=== PATIENT | male | born 1965 | race Caucasian/White ===

== ENCOUNTER 2024-12-01 12:51 | Outpatient (AMB) | payer OTHER, SELFPAY ==
--- NOTE | 2024-12-01 12:51 | MHC.OFFVIS ---
Intake Visit Reasons: Erectile dysfunction Intake Note: New Patient is present for erectile dysfunction labs done 08/29/2023 testosterone : 311 Urology Rx: cialis Blood Thinners: none Imaging completed: none Steam Turbine Operator Required: No Accompanied by: Self / Same As Patient Allergies No Known Allergies (No Known Allergies*) Allergy (Verified 12/01/24 12:55) HPI Comments Details: Jt is a pleasant Urdu-speaking male. He is a patient of Dr. Marquez. He is seen for the following urologic conditions - erectile dysfunction - hypogonadism Urdu translation provided by qualified medical office specialist Re Trial daily 10 mg tadalafil Repeat lab work 2 month Erectile dysfunction Progressive over past 12 month IIEF SCore 11/27 5 Prior occasional tadalafil Takes escitalopram Retrial 10 mg daily tadalafil Hypogonadism 08/28 300 Review of Systems Const Denies chills and Denies fever(s) Card Reports no additional complaints and Denies syncope Resp Denies cough GI Denies abdominal pain and Denies heartburn Reports as per HPI and Denies change in libido Neuro Denies syncope Psych Denies change in libido Endo Denies change in libido Physical Exam Const General: cooperative, healthy appearing, comfortable and no acute distress Orientation/consciousness: patient oriented x3 HEENT Face and sinus: Yes normal facial exam Mouth: moist mucous membranes Neck Neck: Yes normal visual inspection, Yes full ROM and Yes trachea midline Chest Chest palpation & inspection: normal inspection of the chest Resp Effort & Inspection: normal respiratory effort, able to speak in complete sentences and no respiratory distress GI Inspection: Yes normal to inspection Back/Spine/Pelvis Cervical Spine: normal cervical lordosis Thoracic/Lumbar Spine: thoracic and lumbar spine normal to inspection Skin General skin exam: no rashes or lesions noted Neuro General: patient oriented x3, gait normal, tone normal and moves all extremities Extrem General: Yes normal to inspection and Yes capillary refill normal Assessment & Plan Assessment & Plan (1) Hypogonadism in male: Code(s): E29.1 - Testicular hypofunction Category: Medical (2) Erectile dysfunction due to arterial insufficiency: Code(s): N52.01 - Erectile dysfunction due to arterial insufficiency Category: Medical Plan Three-month follow-up lab work Orders: Orders Lutenizing Hormone 2 Months E29.1 - Testicular hypofunction Testosterone, Free/Total 2 Months E29.1 - Testicular hypofunction Medications: New tadalafil 10 mg PO DAILY 90 tabs 0RF sexual activity 90 days E29.1 - Testicular hypofunction, N52.01 - Erectile dysfunction due to arterial insufficiency, N52.9 - Male erectile dysfunction, unspecified Patient Instructions: This note is constructed using voice recognition software. While every effort has been made to ensure accuracy cryolite recovery operator errors may have been included. Imaging studies, laboratory and physical exam results were discussed and reviewed in detail. No major barriers to patient understanding were identified. An opportunity to ask questions regarding the treatment plan was provided. All questions were answered. The patient expressed understanding and agreement with the above treatment plan. The patient is aware they should contact our office by phone for worsening of their current condition or the appearance of new urologic symptoms. Compliance is encouraged with any medications and followup testing that is ordered. It is a privilege to participate in the urologic care of your patient. If you have any questions or concerns regarding treatment for the above conditions, or other urologic issues, please do not hesitate to contact me. The office telephone contact is [phone]. Sincerely, Dr Gio Mccall MD, [facility] - Urology Compassionate Specialist Care for the Genitourinary System Coding Level of Care Code New Pt Level 4 (32539) Diagnoses Hypogonadism in male E29.1 Erectile dysfunction due to arterial insufficiency N52.01
--- OUTSIDE RECORDS SUMMARY | 2024-12-01 13:38 | XMS_ITS | Encounter Summary ---
Author Organization [facility], Address [address] [place] [address] Phone Care Team Providers Care Belt Notcher Name Role Phone DaniaLeslee Primary Care Provider Encounter Details Date Type Department Care Team (Late st Contact Info) Description 10/24/2021 Documentation Only [facility], [address] [id number] Toni Pike MD [address] [place] [address] Social History Tobacco Use Types Packs/Day Years Used Date Smoking Tobacco: Never Sex and Gender Information Value Date Recorded Sex Assigned at Not on file Legal Sex Male 4:35 PM EST Gender Identity Not on file Sexual Orientation Not on file documented as of this encounter Plan of Treatment Not on file documented as of this encounter Visit Diagnoses Not on filedocumented in this encounter Care Teams Belt Notcher Relationship Specialty Start Date End Date Yaakov Najerada [address] [place] [address] PCP - General 03/10/19 documented as of this encounter
--- OUTSIDE RECORDS SUMMARY | 2024-12-01 13:38 | XMS_ITS | Clinical Summary ---
Author Organization [facility] Address [address] [place] [address] Care Team Providers Care Central Office Operator Supervisor Name Role Phone Unavailable Primary Care Provider Unavailabl e Social History Tobacco Use Types Packs/Day Years Used Date Smoking Tobacco: Never Assessed Sex and Gender Information Value Date Recorded Sex Assigned at Not on file Legal Sex Male 10:48 PM EST Gender Identity Not on file Sexual Orientation Not on file Plan of Treatment Health Maintenance Due Date Last Done Comments DTaP,Tdap,and Td Vaccines (1 - Tdap) 1985 Hepatitis B Vaccines (1 of 3 - 19+ 3-dose series) 1985 Pneumococcal Vaccine: 50+ Ye ars (1 of 1 - PCV) 2016 Zoster Vaccines (1 of 2) 2016 Cholesterol Screening (Lipid Panel) 04/08/2022 Colorectal Cancer Screening: Colonoscopy 04/08/2022 HIV Screening 04/08/2022 Hepatitis C Screening 04/08/2022 Social Influencers of Health Screening 04/08/2022 COVID-19 Vaccine ( - 2023-2 5 season) 2024 Depression Screening 05/06/2024 Influenza Vaccine (#1) 2025 HIB Vaccines Aged Out No longer eligi ble based on patient's age to complete this topic HPV Vaccines Aged Out No longer eligi ble based on patient's age to complete this topic Hepatitis A Vaccines Aged Out No long er eligible based on patient's age to complete this topic IPV Vaccines Aged Out No longer eligi ble based on patient's age to complete this topic MMR Vaccines Aged Out No longer eligi ble based on patient's age to complete this topic Meningococcal ACWY Vaccine Aged Out N o longer eligible based on patient's age to complete this topic Meningococcal B Vaccine Aged Out No l onger eligible based on patient's age to complete this topic RSV Immunization Patients Un cherie 20 months Aged Out No longer eligible b ased on patient's age to complete this topic Varicella Vaccines Aged Out No longer eligible based on patient's age to complete this topic
== END 2024-12-01 14:03 | disposition home or self-care (01) ==
LOC: HO.HUSH 12:52
PROVIDERS: PCP Internal Medicine; Visit Provider Urology
DX: E29.1 Testicular hypofunction (principal); N52.01 Erectile dysfunction due to arterial insufficiency; Z13.9 Encounter for screening, unspecified
CPT/HCPCS: 99204

== ENCOUNTER → 2024-12-01 12:51 | Outpatient (BNVA) | payer OTHER, SELFPAY | PROVIDERS: PCP Internal Medicine; Visit Provider Urology | DX: E29.1 Testicular hypofunction (principal); N52.01 Erectile dysfunction due to arterial insufficiency | CPT/HCPCS: 81003; 99202 ==

== ENCOUNTER 2025-02-11 08:39 | Outpatient (REF) | payer OTHER, SELFPAY ==
[2025-02-16 17:47] LABS: Testosterone, Free 71.2 pg/mL (35.0-155.0)
== END 2025-02-11 08:40 | disposition home or self-care (01) ==
LOC: HO.HKASLDS 08:39
PROVIDERS: PCP Internal Medicine; Visit Provider Urology
DX: E29.1 Testicular hypofunction (principal)
CPT/HCPCS: 36415; 83002; 84402; 84403

== ENCOUNTER 2025-04-09 08:29 | Outpatient (AMB) | payer OTHER, SELFPAY ==
--- NOTE | 2025-04-09 08:53 | MHC.OFFVIS ---
Intake Visit Reasons: Testosterone/LH(SET) Intake Note: Reason for Visit: Testosterone/Luteinizing Hormone Results Urology Meds: Tadalafil (No longer taking) Blood Thinners: None Labs: Total Testosterone- 584 Free Testosterone: 71.2 Luteinizing Hormone- 7.7 (02/11/2025) Imaging: None Last PVR: None Patient wants to discuss another medication than tadalafil states it is not working Semiconductor Dies Loader Required: No Accompanied by: Self / Same As Patient Allergies No Known Allergies (No Known Allergies*) Allergy (Verified 04/09/25 08:58) HPI Comments Details: Jt is a pleasant [place] African-speaking male. He is a patient of Dr. Marquez. He is seen for the following urologic conditions - erectile dysfunction - hypogonadism Follow-up from daily tadalafil Improved testosterone Does have questions about erections On would continue with 10 mg daily +20 mg on demand Prescription sent Erectile dysfunction Progressive over past 12 month IIEF SCore 11/27 5 Prior occasional tadalafil Takes escitalopram Retrial 10 mg daily tadalafil Hypogonadism 08/28 300, 02/27 T 580 LH 7.7 PFSH Medical History Strabismus Prediabetes Obesity, class 1 Lipoma HTN (hypertension) Hepatic steatosis Depression Diverticulosis CKD (chronic kidney disease) Chronic low back pain Family History Mother HTN (hypertension) Depression Review of Systems Const Denies chills and Denies fever(s) Card Reports no additional complaints and Denies syncope Resp Denies cough GI Denies abdominal pain and Denies heartburn Reports as per HPI and Denies change in libido Neuro Denies syncope Psych Denies change in libido Endo Denies change in libido Physical Exam Const General: cooperative, healthy appearing, comfortable and no acute distress Orientation/consciousness: patient oriented x3 HEENT Face and sinus: Yes normal facial exam Mouth: moist mucous membranes Neck Neck: Yes normal visual inspection, Yes full ROM and Yes trachea midline Chest Chest palpation & inspection: normal inspection of the chest Resp Effort & Inspection: normal respiratory effort, able to speak in complete sentences and no respiratory distress GI Inspection: Yes normal to inspection Back/Spine/Pelvis Cervical Spine: normal cervical lordosis Thoracic/Lumbar Spine: thoracic and lumbar spine normal to inspection Skin General skin exam: no rashes or lesions noted Neuro General: patient oriented x3, gait normal, tone normal and moves all extremities Extrem General: Yes normal to inspection and Yes capillary refill normal Assessment & Plan Assessment & Plan (1) Erectile dysfunction due to arterial insufficiency: Code(s): N52.01 - Erectile dysfunction due to arterial insufficiency Category: Medical (2) Hypogonadism in male: Code(s): E29.1 - Testicular hypofunction Category: Medical Plan Refill medications Medications: Changed From tadalafil (Cialis) 5 mg PO DAILY N52.01 - Erectile dysfunction due to arterial insufficiency To tadalafil On demand [id number] [facility] [id number] Member [id number] 20 mg PO ONCE PRN 30 tabs 0RF sexual activity 90 days N52.01 - Erectile dysfunction due to arterial insufficiency From tadalafil 10 mg PO DAILY 90 days 90 tabs 0RF sexual activity E29.1 - Testicular hypofunction, N52.01 - Erectile dysfunction due to arterial insufficiency To tadalafil [id number] [facility] [id number] Member [id number] 10 mg PO DAILY 90 tabs 1RF sexual activity 90 days E29.1 - Testicular hypofunction, N52.01 - Erectile dysfunction due to arterial insufficiency Patient Instructions: This note is constructed using voice recognition software. While every effort has been made to ensure accuracy chip tester errors may have been included. Imaging studies, laboratory and physical exam results were discussed and reviewed in detail. No major barriers to patient understanding were identified. An opportunity to ask questions regarding the treatment plan was provided. All questions were answered. The patient expressed understanding and agreement with the above treatment plan. The patient is aware they should contact our office by phone for worsening of their current condition or the appearance of new urologic symptoms. Compliance is encouraged with any medications and followup testing that is ordered. It is a privilege to participate in the urologic care of your patient. If you have any questions or concerns regarding treatment for the above conditions, or other urologic issues, please do not hesitate to contact me. The office telephone contact is [phone]. Sincerely, Dr Gio Mccall MD, [facility] - Urology Compassionate Specialist Care for the Genitourinary System Coding Level of Care Code Est Pt Level 4 (84371) Complex visit Add On G2211 Diagnoses Erectile dysfunction due to arterial insufficiency N52.01 Hypogonadism in male E29.1
== END 2025-04-09 09:18 | disposition home or self-care (01) ==
LOC: HO.HUSH 08:30
PROVIDERS: PCP Internal Medicine; Visit Provider Urology
DX: N52.01 Erectile dysfunction due to arterial insufficiency (principal); E29.1 Testicular hypofunction
CPT/HCPCS: 99214; G2211

== ENCOUNTER → 2025-04-09 08:29 | Outpatient (BNVA) | payer OTHER, SELFPAY | PROVIDERS: PCP Internal Medicine; Visit Provider Urology | DX: N52.01 Erectile dysfunction due to arterial insufficiency (principal); E29.1 Testicular hypofunction | CPT/HCPCS: 99212 ==